=== PATIENT | female | born 1960 | race Caucasian/White ===

== ENCOUNTER → 2023-07-02 07:00 | Outpatient (REF) | payer OTHER, SELFPAY | LOC: RCS 07:00 | PROVIDERS: ATTENDING PHYSICIAN Physician Assistant Medical | DX: R00.2 Palpitations (principal) | CPT/HCPCS: 93225; 93226 ==

== ENCOUNTER → 2024-07-04 12:41 | Outpatient (REF) | payer MEDICARE, OTHER, SELFPAY | LOC: RAD 12:41 | PROVIDERS: ATTENDING PHYSICIAN Nurse Practitioner Family; FAMILY PHYSICIAN Physician Assistant Medical | DX: Z78.0 Asymptomatic menopausal state (principal); E83.52 Hypercalcemia | CPT/HCPCS: 77080; 77081 ==

== ENCOUNTER → 2024-10-17 08:38 | Outpatient (REF) | payer MEDICARE, OTHER, SELFPAY | LOC: RAD 08:38 | PROVIDERS: ATTENDING PHYSICIAN Internal Medicine Endocrinology, Diabetes & Metabolism; FAMILY PHYSICIAN Nurse Practitioner Family | DX: E83.52 Hypercalcemia (principal); E34.9 Endocrine disorder, unspecified | CPT/HCPCS: 78071; A9500 ==

== ENCOUNTER → 2024-10-21 13:55 | Outpatient (REF) | payer MEDICARE, OTHER, SELFPAY | LOC: RAD 13:55 | PROVIDERS: ATTENDING PHYSICIAN Nurse Practitioner Family; FAMILY PHYSICIAN Physician Assistant Medical; REFERRING PHYSICIAN Internal Medicine Endocrinology, Diabetes & Metabolism | DX: E83.52 Hypercalcemia (principal); E34.9 Endocrine disorder, unspecified | CPT/HCPCS: 76536 ==

== ENCOUNTER 2024-12-31 06:03 | Day surgery (SDC) | payer MEDICARE, OTHER, SELFPAY ==
[2024-12-18 14:07] VITALS: BMI 26.9
[2024-12-31] VITALS (8 sets, daily range): BP systolic 99–134; BP diastolic 50–67; BMI 26.9
[2024-12-31] MEDS: TYLENOL 1000 MG PO (07:30)
[2024-12-31] MEDS: NEURONTIN 300 MG PO (07:30)
[2024-12-31] MEDS: HEPARIN 5000 UNITS SC (07:32)
[2024-12-31] MEDS: NORMOSOL-R/PLASMALYTE-A 1000 IV (07:41)
[2024-12-31 08:46] LABS: Turbo PTH 162.4 pg/ml (14.5-75.2)
[2024-12-31 09:37] LABS: Turbo PTH 39.9 pg/ml (14.5-75.2)
--- NOTE | 2024-12-31 12:08 | OR.RPT ---
Operative Report
Operative Report
Date of Operation: December 31, 2024
Preoperative Diagnosis: Hyperparathyroidism - E210
Postoperative Diagnosis: Same
Surgeon: Boo Lazaro M.D.
Operation: Neck exploration, Left and Right Superior Parathyroidectomy - 37082
Anesthesia: GET
Estimated Blood Loss: 3 cc
Drains: None
Specimen: Left and Right Superior neck nodules, rule out parathyroid adenomas
Complications: None
Procedure:
The patient was taken to the operating room and placed in the usual supine position. After adequate general endotracheal anesthesia was established, the patient's neck was extended, prepped, and draped in the typical sterile fashion. A 4 cm
transcervical incision was made two fingerbreadths above the sternal notch. The skin incision was made with the #15 blade, and this was taken through the skin into the subcutaneous tissue. The underlying platysma muscle was divided, and subplatysmal
flaps were created superiorly to the thyroid cartilage and inferiorly to the sternal notch. Strap muscles were identified and at the midline.
Attention was turned to the patient's right side of the neck. The right thyroid lobe was mobilized medially. During this process, the right recurrent laryngeal nerve was identified and preserved throughout the surgery. A right upper neck nodule was
identified and noted to be enlarged, excised, and sent to the pathology department, which showed a hypercellular parathyroid gland.
The attention was turned to the left side of the neck. The left thyroid lobe was mobilized medially. During this process, the left recurrent laryngeal nerve was identified and preserved throughout the surgery. A left neck nodule was identified and
noted to be enlarged, excised, and sent to the pathology department, which showed a hypercellular parathyroid gland. The intraoperative PTH levels normalized.
After obtaining adequate hemostasis, the strap muscles were reapproximated with #3-0 Vicryl in a running fashion. The platysma muscle was reapproximated with #3-0 Vicryl in an interrupted fashion, and the skin was approximated with #4-0 Monocryl in
a running subcuticular fashion. The Steri-Strips and sterile dressings were placed. The patient tolerated the procedure well. The final instrument, needle, and sponge counts were correct. The patient was extubated and transferred to the PACU.
== END 2024-12-31 11:40 | disposition home or self-care (01) ==
LOC: SDS 06:03
PROVIDERS: ATTENDING PHYSICIAN Surgery; FAMILY PHYSICIAN Physician Assistant Medical
DX: E21.3 Hyperparathyroidism, unspecified (principal)
CPT/HCPCS: 60500; 83970; 88305; 88331